=== PATIENT | female | born 1985 | race Caucasian/White ===

== ENCOUNTER 2017-03-31 17:45 | Emergency (ER) | payer OTHER ==
[~2017-03-31] VITALS: Ht 165.1 cm; Wt 151.3 kg
[~2017-03-31 17:45] MED LIST: ATORVASTATIN CA40 MG PO; BUPROPION XL300 MG PO; BUSPAR5 MG PO; CIPRO500 MG PO; CLONAZEPAM0.5 MG PO; DULOXETINE HCL60 MG PO; GABAPENTIN300 MG PO; LEVOTHYROXINE100 MCG PO; LISINOPRIL20 MG PO; NEURONTIN600 MG PO; NORCO 5/3251 TABLET PO; PERCOCET 5/31 TABLET PO; ROZEREM8 MG PO; TRAZODONE HCL50 MG PO; ZOFRAN ODT4 MG PO; ZOFRAN4 MG PO
[2017-03-31 18:19] LABS: BASOPHIL (%) 0.3 % (0-1); EOSINOPHIL (%) 1.7 % (0-5); EOSINOPHIL COUNT 0.2 K/uL (0-0.3); HEMATOCRIT 36.3 % (36.0-46.0); HEMOGLOBIN 11.6 G/DL (11.9-15.5); IMMATURE GRANULOCYTE (%) 0.3 % (0.0-0.7); LYMPHOCYTE (%) 27.7 % (15-42); LYMPHOCYTE COUNT 3.2 K/uL (1.0-2.8); MCH 27.6 PG (29.0-34.0); MCV 86.4 FL (83-99); MONOCYTE COUNT 0.7 K/uL (0-0.8); NEUTROPHIL COUNT 7.3 K/uL (1.8-6.4); PLATELET COUNT 327 K/uL (156-360); RBC DIS.WIDTH-CV 14.3 % (11.8-14.6); RBC DIS.WIDTH-SD 45.1 % (39-53); WHITE BLOOD COUNT 11.5 K/uL (4.1-10.2)
[2017-03-31 18:43] LABS: CHLORIDE 103 MEQ/L (99-109); SODIUM 136 MEQ/L (136-147)
[2017-03-31 18:48] LABS: CREATININE 0.7 MG/DL (0.6-1.3); GFR ESTIMATE (CALCULATED) > 59 mL/min/; GLUCOSE 96 mg/dL (70-99); UREA NITROGEN (BUN) 9 mg/dL (9-23)
[2017-03-31] MEDS ORDERED: ZOFRAN ODT4 MG PO (20:53)
[2017-03-31 21:18] VITALS: BP 141/92
== END 2017-03-31 21:18 | disposition home or self-care (01) ==
LOC: EME 17:45
DX: T81.4XXA Infection following a procedure, initial encounter (principal); M54.5 Low back pain; R11.0 Nausea; F32.9 Major depressive disorder, single episode, unspecified; J45.909 Unspecified asthma, uncomplicated; F41.9 Anxiety disorder, unspecified; Z88.8 Allergy status to other drugs, medicaments and biological substances
CPT/HCPCS: 80048; 83605; 85025; 99281; 99284